=== PATIENT | female | born 1960 | race Caucasian/White ===

== ENCOUNTER 2016-12-18 12:45 | Outpatient (CLI) | payer OTHER ==
--- NOTE | 2016-12-18 18:52 | Mammography Report ---
DIGITAL DIAGNOSTIC BILATERAL MAMMOGRAM: 12/18/2016 CLINICAL INDICATION: Followup benign biopsy. TECHNIQUE: Bilateral CC and MLO views, right true lateral view. COMPARISON: 12/15/2015, 12/05/2015, 10/31/2015, 06/13/2010. The breasts again demonstrate heterogeneously dense fibroglandular parenchyma bilaterally. Postopera tive and post-treatment changes in the right breast are stable. Biopsy marker is stable. Coarse and punctate, typically benign calcifications are present. IMPRESSION: BENIGN FINDINGS. RECOMMENDATION: ROUTINE ANNUAL SCREENING UNLESS OTHERWISE CLINICALLY INDICATED. BIRADS CATEGORY: 2, BENIGN FINDINGS. STANDARD QUALIFYING STATEMENTS 1. This examination was reviewed with the aid of Computed-Aided Detection (CAD). 2. A negative or benign imaging report should not delay biopsy if clinically suspicious findings are present. Consider surgical consultation if warranted. More than 5% of cancers are not identified b y imaging. 3. Dense breasts may obscure an underlying neoplasm. JOB #: [id number] EXT JOB #:[id number]
== END 2016-12-18 12:46 | disposition home or self-care (01) ==
LOC: DI 12:45
PROVIDERS: ATTEND Family Medicine
DX: Z12.31 Encounter for screening mammogram for malignant neoplasm of breast (principal)
CPT/HCPCS: 77066

== ENCOUNTER 2017-01-22 09:43 | Day surgery (SDC) | payer OTHER ==
[2017-01-22] MEDS ORDERED: LACTATED RINGERS 1,000 ML IV ONE (09:50)
[2017-01-22] MEDS ORDERED: fentaNYL 100 MCG/2 ML VIAL IVP ONE (10:40)
[2017-01-22] MEDS ORDERED: MIDAZOLAM 2 MG/2 ML VIAL IVP ONE (10:40)
[2017-01-22 11:56] VITALS: BP 98/70
== END 2017-01-22 09:44 | disposition home or self-care (01) ==
LOC: SDS 09:43
PROVIDERS: ATTEND Surgery
PROC: 0DJD8ZZ Inspection of Lower Intestinal Tract, Via Natural or Artificial Opening Endoscopic (ICD-10-PCS; principal; 2017-01-22 10:45)
DX: Z12.11 Encounter for screening for malignant neoplasm of colon (principal); Z98.0 Intestinal bypass and anastomosis status; J45.909 Unspecified asthma, uncomplicated; K21.9 Gastro-esophageal reflux disease without esophagitis; E03.9 Hypothyroidism, unspecified
CPT/HCPCS: 45378; J7120

== ENCOUNTER 2017-04-08 08:21 | Outpatient (CLI) | payer OTHER ==
--- NOTE | 2017-04-08 15:26 | Ultrasound Report ---
EXAM: AORTA SCREENIN04/08/2017 CLINICAL INDICATION: Family history of aneurysm, personal history of mitral valve prolapse with aortic insufficiency. TECHNIQUE: Real-time sonographic imaging was performed by the java [email or web address] application developer through the aorta. Multiple equal opportunity representative static images were saved for review. FINDINGS: Abdominal aorta is normal in caliber, measuring 2.0 cm proximally, 2.1 cm in the mid portion, and 1.3 cm distally. The iliacs are normal in caliber. No free fluid is present. IMPRESSION: NO EVIDENCE OF ABDOMINAL AORTIC ANEURYSM. TD: 04/08/2017 15:25 MTDD
== END 2017-04-08 08:22 | disposition home or self-care (01) ==
LOC: DI 08:21
PROVIDERS: ATTEND Family Medicine
DX: I34.1 Nonrheumatic mitral (valve) prolapse (principal); I08.0 Rheumatic disorders of both mitral and aortic valves; I71.4 Abdominal aortic aneurysm, without rupture; I35.1 Nonrheumatic aortic (valve) insufficiency
CPT/HCPCS: 76706; 93306

== ENCOUNTER 2017-07-02 00:38 | Emergency (ER) | payer OTHER ==
[2017-07-02] MEDS ORDERED: SODIUM CHLORIDE 0.9% 1,000 ML IV ONE (01:06)
[2017-07-02 01:14] LABS: BASOPHILS % (AUTO) 0.3 %; EOSINOPHILS # (AUTO) 0.1 10^3/uL (0.0-0.7); EOSINOPHILS % (AUTO) 0.6 %; HGB - HEMOGLOBIN 12.7 g/dL (12.0-16.0); LYMPHOCYTES # (AUTO) 1.9 10^3/uL (1.5-3.5); LYMPHOCYTES % (AUTO) 14.6 %; MEAN CORPUSCULAR HEMOGLOBIN 27.4 pg (27.0-31.0); MEAN CORPUSCULAR HGB CONC 32.7 g/dL (32.0-36.0); MEAN CORPUSCULAR VOLUME 83.8 fL (81.0-99.0); MEAN PLATELET VOLUME 8.1 fL (7.9-10.8); MONOCYTES # (AUTO) 0.5 10^3/uL (0.0-1.0); MONOCYTES % (AUTO) 3.5 %; NEUTROPHILS # (AUTO) 10.7 10^3/uL (1.5-6.6); PLT - PLATELET COUNT 356 10^3/uL (130-450); RED BLOOD COUNT 4.62 10^6/uL (4.20-5.40); WHITE BLOOD COUNT 13.3 x10^3/uL (4.8-10.8)
[2017-07-02 01:23] LABS: ALBUMIN/GLOBULIN RATIO 1.1 (1.0-2.2); BILIRUBIN,TOTAL 0.3 mg/dL (0.2-1.0); CALCIUM 9.7 mg/dL (8.5-10.3); CREATININE 0.5 mg/dL (0.4-1.0); TOTAL PROTEIN 7.6 g/dL (6.7-8.2)
[2017-07-02 01:46] LABS: BILIRUBIN,URINE NEGATIVE (NEGATIVE); GLUCOSE, URINE (UA) NEGATIVE (NEGATIVE); KETONES,URINE (UA) NEGATIVE (NEGATIVE); LEUKOCYTE ESTERASE, URINE NEGATIVE (NEGATIVE); NITRITE,URINE NEGATIVE (NEGATIVE); OCCULT BLOOD,URINE MODERATE (NEGATIVE); PROTEIN,URINE NEGATIVE (NEGATIVE); UROBILINOGEN,URINE 0.2 (NORMAL) E.U./dL (NORMAL)
[2017-07-02 01:47] LABS: CLARITY,URINE CLEAR (CLEAR)
[2017-07-02 01:55] LABS: BACTERIA,URINE Rare /HPF (None Seen); SQUAMOUS EPITHELIAL CELL,UR MANY Squamous (<= Few)
--- NOTE | 2017-07-02 02:49 | ED Physician Documentation ---
PD HPI GI BLEED - Stated complaint Stated Complaint: BLOODY DIARRHEA - Chief complaint Chief Complaint: Abd Pain - History obtained from History obtained from: Patient - History of Present Illness Timing - onset: Enter time (16:00) Timing - duration: Hours Timing - details: Abrupt onset Pain level now: 4 Associated symptoms: BRBPR Contributing factors: No: Sick contact, Travel, Recent antibiotics, Anticoagulated Improved by: No: Eating, Laying still, Vomiting, BM, Position, Meds Worsened by: No: Eating, Moving, Breathing, Position, Palpation Recently seen: Not recently seen - Additional information Additional information: c/o diarrhea since 4 PM with blood tinge, with frequent subsequent loose stools and increasing amounts of blood, and 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, Oophrectomy - Present Medications Home Medications: Ambulatory Orders Medication Instructions Recorded Confirmed Estradiol 2 mg PO DAILY 10/24/13 07/02/17 FLUoxetine [PROzac] 60 mg PO DAILY 10/24/13 07/02/17 Levothyroxine [Synthroid] 175 mcg PO QDAC 10/24/13 07/02/17 Ciprofloxacin HCl [Cipro] 500 mg PO BID #14 tablet 07/02/17 Metronidazole [Flagyl] 500 mg PO TID #21 tablet 07/02/17 Ondansetron Odt [Zofran] 4 mg TL Q6H PRN #10 tablet 07/02/17 oxyCODONE [Roxicodone] 5 mg PO Q6H PRN #20 tablet 07/02/17 - Allergies Allergies/Adverse Reactions: Allergies Allergy/AdvReac Type Severity Reaction Status Date / Time morphine Allergy MAKES PT Verified 07/02/17 00:48 FEEL DISORIENTED - Social History Does the pt smoke?: No Smoking Status: Never smoker Does the pt drink ETOH?: No Does the pt have substance abuse?: No - Immunizations Immunizations are current?: Yes - POLST Patient has POLST: No PD ED PE NORMAL - Vitals Vital signs reviewed: Yes - General General: Alert and oriented X 3, No acute distress, Well developed/nourished - HEENT HEENT: Moist mucous membranes - Cardiac Cardiac: RRR, No murmur - Respiratory Respiratory: No respiratory distress, Clear bilaterally - Abdomen Abdomen: Soft, Non distended - Derm Derm: Normal color, Warm and dry PD ED PE EXPANDED - Abdomen Abdomen: Tender to palpation, LUQ Results - Vitals Vitals: Oxygen O2 Source Room air - Labs Labs: Laboratory Tests 07/02/17 07/02/17 07/02/17 01:04 01:04 01:40 WBC 13.3 H RBC 4.62 Hgb 12.7 Hct 38.7 MCV 83.8 MCH 27.4 MCHC 32.7 RDW 15.0 Plt Count 356 MPV 8.1 Neut # 10.7 H Lymph # 1.9 [place] # 0.5 Eos # 0.1 Baso # 0.0 Absolute Nucleated RBC 0.00 Nucleated RBC % 0.0 Sodium 136 Potassium 4.2 Chloride 104 Carbon Dioxide 22 Anion Gap 10.0 BUN 14 Creatinine 0.5 Estimated GFR (MDRD) 127 Glucose 106 H Calcium 9.7 Total Bilirubin 0.3 AST 17 ALT 12 Alkaline Phosphatase 50 Total Protein 7.6 Albumin 4.0 Globulin 3.6 Albumin/Globulin Ratio 1.1 Lipase 19 L Urine Color YELLOW Urine Clarity CLEAR Urine pH 5.0 Ur Specific [place] >=1.030 H Urine Protein NEGATIVE Urine Glucose (UA) NEGATIVE Urine Ketones NEGATIVE Urine Occult Blood MODERATE H Urine Nitrite NEGATIVE Urine Bilirubin NEGATIVE Urine Urobilinogen 0.2 (NORMAL) Ur Leukocyte Esterase NEGATIVE Urine RBC 6-10 H Urine WBC 0-3 Ur Squamous Epith Cells MANY Squamous H Urine Bacteria Rare Ur Microscopic Review INDICATED Urine Culture Comments NOT INDICATED - Rads (name of study) CT A/P Radiology: Prelim report reviewed, See rad report PD MEDICAL DECISION MAKING - ED course Complexity details: reviewed results, re-evaluated patient, considered differential, d/w patient Departure - Departure Disposition: 01 Home, Self Care Clinical Impression: Infectious colitis Condition: Good Instructions: ED Hematochezia Stable Follow-Up: Brigido Marroquin DO [Primary Care Provider] - (3-5 days) Prescriptions: Ciprofloxacin HCl [Cipro] 500 mg PO BID #14 tablet Metronidazole [Flagyl] 500 mg PO TID #21 tablet Ondansetron Odt [Zofran] 4 mg TL Q6H PRN #10 tablet PRN Reason: Nausea / Vomiting oxyCODONE [Roxicodone] 5 mg PO Q6H PRN #20 tablet PRN Reason: Pain Forms: Activity restrictions Discharge Date/Time: 07/02/17 06:23
[2017-07-02] MEDS ORDERED: IOPAMIDOL-300 100 ML VIAL ONE (03:56)
[2017-07-02] MEDS ORDERED: IOPAMIDOL-300 100 ML VIAL IVP ONE (04:10)
[2017-07-02] MEDS ORDERED: ONDANSETRON 4 MG/2 ML VIAL IVP STA ×2 (04:29→06:10)
[2017-07-02] MEDS ORDERED: HYDROmorphone 1 MG/ML SYRINGE IVP STA (04:29)
--- NOTE | 2017-07-02 04:52 | CT Report ---
EXAM: CT ABDOMEN AND PELVIS EXAM DATE: 07/02/2017 04:13 AM. CLINICAL HISTORY: Abdominal pain, blood in stool COMPARISONS: 05/10/2014 TECHNIQUE: Routine helical CT imaging was performed through the abdomen and pelvis. IV contrast: 100M L ISOVUE 300. Enteric contrast: No. Reconstructions: Coronal and sagittal. In accordance with CT protocol optimization, one or more of the following dose reduction techniques w ere utilized for this exam: automated exposure control, adjustment of mA and/or KV based on patient s ize, or use of iterative reconstructive technique. FINDINGS: ABDOMEN: Liver: No significant abnormality. Stomach/Distal Esophagus: No significant abnormality. Gallbladder: Surgically absent. Bile Ducts: No significant abnormality. Pancreas: No significant abnormality. Spleen: No significant abnormality. Kidneys: No suspicious solid appearing lesion. No hydronephrosis. Low-density foci within the lower p ole of the kidneys bilaterally, probably cysts. These are difficult to characterize. A few left-sided peripelvic cysts. Adrenals: No significant abnormality. Bowel: There is wall thickening of the distal descending colon and sigmoid colon is noted. Sigmoid co rubina luminal narrowing. There is a right lower quadrant small bowel colonic anastomosis and partial re section of bowel. Average amount of retained fecal material. Appendix: Surgically absent. Lymph Nodes: No pathologically enlarged nodes. Vasculature: Normal caliber aorta. Fluid: No significant free fluid. Abdominal Wall: No significant abnormality. Other: No significant abnormality. PELVIS: Uterus and Ovaries: Surgically absent uterus. Ovaries are not visualized, possibly surgically absent as well. Bladder: No significant abnormality. Lymph Nodes: No pathologically enlarged nodes. Fluid: No significant free fluid. Other: None. BONES: No suspicious bony lesions. LOWER CHEST: No significant consolidation or effusion. IMPRESSION: 1. Wall thickening of the distal descending colon and sigmoid colon, coupled with sigmoid colon lumin al narrowing. This may be infectious colitis. Inflammatory bowel disease difficult to exclude with ce rtainty. 2. Status post cholecystectomy without pathologic biliary ductal dilation. [facility] Referring Provider Line: [phone] SITE ID: [id number]
--- NOTE | 2017-07-02 04:52 | CT Preliminary Report ---
Exam: CT ABDOMEN/PELVIS W/ IMPRESSION: 1. Wall thickening of the distal descending colon and sigmoid colon, coupled with sigmoid colon lumin al narrowing. This may be infectious colitis. Inflammatory bowel disease difficult to exclude with ce rtainty. 2. Status post cholecystectomy without pathologic biliary ductal dilation. [facility] SITE ID: [id number]
[2017-07-02] MEDS ORDERED: CIPROFLOXACIN 250 MG TABLET PO STA (06:10)
[2017-07-02] MEDS ORDERED: metroNIDAZOLE 250 MG TABLET PO STA (06:10)
[2017-07-02 06:24] VITALS: BP 109/68
== END 2017-07-02 06:23 | disposition home or self-care (01) ==
LOC: ED 00:38
DX: A09 Infectious gastroenteritis and colitis, unspecified (principal); J45.909 Unspecified asthma, uncomplicated; Z98.84 Bariatric surgery status
CPT/HCPCS: 36415; 74177; 80053; 81001; 83690; 85025; 96361; 96374; 96375; 96376; 99284; A9270; J1170; Q9967; 81003; 87086

== ENCOUNTER 2018-01-17 11:28 | Outpatient (CLI) | payer OTHER | END 2018-01-17 11:29 | disposition critical access hospital (66) | LOC: EMS 11:28 | PROVIDERS: ATTEND Surgery | DX: R10.13 Epigastric pain (principal); R11.2 Nausea with vomiting, unspecified | CPT/HCPCS: A0425; A0427 ==

== ENCOUNTER 2018-01-17 11:47 | Emergency (ER) | payer OTHER ==
--- NOTE | 2018-01-17 12:23 | ED Physician Documentation ---
PD HPI ABD PAIN - Stated complaint Stated Complaint: ABD PX - Chief complaint Chief Complaint: Abd Pain - History obtained from History obtained from: Patient - History of Present Illness Timing - onset: Yesterday Timing - duration: Days (2) Timing - details: Abrupt onset, Still present, Waxing and waning Quality: Aching, Pain. No: Cramping Location: RUQ, Epigastric Review of Systems Constitutional: denies: Fever, Chills, Myalgias Nose: denies: Rhinorrhea / runny nose, Congestion Throat: denies: Sore throat Cardiac: denies: Chest pain / pressure, Palpitations Respiratory: denies: Dyspnea, Cough GI: reports: Abdominal Pain, Nausea. denies: Vomiting, Diarrhea : denies: Dysuria, Frequency Skin: denies: Rash, Lesions Neurologic: reports: Generalized weakness. denies: Focal weakness, Numbness, Near syncope PD PAST MEDICAL HISTORY - Past Medical History Cardiovascular: Valve disorder Respiratory: Asthma Psych: Anxiety - Past Surgical History Past Surgical History: Yes General: Cholecystectomy, Appendectomy, Bowel surgery, Gastric surgery, Colonoscopy /[employer] [place]: Hysterectomy, Oophrectomy - Present Medications Home Medications: Ambulatory Orders Medication Instructions Recorded Confirmed Estradiol 2 mg PO DAILY 10/24/13 07/02/17 FLUoxetine [PROzac] 60 mg PO DAILY 10/24/13 07/02/17 Levothyroxine [Synthroid] 175 mcg PO QDAC 10/24/13 07/02/17 Ciprofloxacin HCl [Cipro] 500 mg PO BID #14 tablet 07/02/17 Metronidazole [Flagyl] 500 mg PO TID #21 tablet 07/02/17 Ondansetron Odt [Zofran] 4 mg TL Q6H PRN #10 tablet 07/02/17 oxyCODONE [Roxicodone] 5 mg PO Q6H PRN #20 tablet 07/02/17 Famotidine [Pepcid] 20 mg PO ONCE #30 tablet 01/17/18 Lidocaine Viscous 2% [Xylocaine 5 ml PO Q4H PRN #1 bottle 01/17/18 Viscous 2%] Ondansetron Odt [Zofran] 4 mg TL Q6H PRN #15 tablet 01/17/18 Tramadol HCl 50 mg PO Q6H PRN #20 tablet 01/17/18 - Allergies Allergies/Adverse Reactions: Allergies Allergy/AdvReac Type Severity Reaction Status Date / Time morphine Allergy MAKES PT Verified 07/02/17 00:48 FEEL DISORIENTED - Social History Does the pt smoke?: No Smoking Status: Never smoker Does the pt drink ETOH?: No Does the pt have substance abuse?: No - Family History Family history: reports: Non contributory - Immunizations Immunizations are current?: Yes - POLST Patient has POLST: No PD ED PE NORMAL - Vitals Vital signs reviewed: Yes - General General: Alert and oriented X 3, Well developed/nourished, Other (appears in pain and uncomfortable due to upper abd pain) - HEENT HEENT: PERRL (nonicteric), Pharynx benign - Neck Neck: Supple, no meningeal sign, No adenopathy - Cardiac Cardiac: RRR, No murmur - Respiratory Respiratory: Clear bilaterally - Abdomen Abdomen: Normal bowel sounds, Soft, Non distended, No organomegaly, Other (tender mid to upper abd with local guarding upper abd. No percussion nor rebound tenderness. ) - Female Female : Deferred - Rectal Rectal: Deferred - Back Back: No CVA TTP - Derm Derm: Normal color, Warm and dry - Extremities Extremities: No tenderness to palpate, Normal ROM s pain, No edema, No calf tenderness / cord - Neuro Neuro: Alert and oriented X 3, No motor deficit, Normal speech Results - Vitals Vitals: Oxygen O2 Source Room air - Labs Labs: Laboratory Tests 01/17/18 01/17/18 01/17/18 12:53 12:53 12:53 WBC 6.9 RBC 4.60 Hgb 13.3 Hct 38.9 MCV 84.6 MCH 28.9 MCHC 34.2 RDW 13.8 Plt Count 297 MPV 8.1 Neut # (Auto) 5.1 Lymph # (Auto) 1.2 L [place] # (Auto) 0.4 Eos # (Auto) 0.2 Baso # (Auto) 0.0 Absolute Nucleated RBC 0.01 Nucleated RBC % 0.1 Sodium 135 Potassium 4.3 Chloride 104 Carbon Dioxide 24 Anion Gap 7.0 BUN 9 Creatinine 0.6 Estimated GFR (MDRD) 103 Glucose 108 H Lactic Acid 2.3 H Calcium 9.0 Total Bilirubin 0.7 AST 29 ALT 22 Alkaline Phosphatase 48 Total Protein 7.1 Albumin 3.8 Globulin 3.3 Albumin/Globulin Ratio 1.2 Lipase 76 H - Rads (name of study) abd CT Radiology: Prelim report reviewed (thickened pylorus. Else negative) PD MEDICAL DECISION MAKING - ED course Complexity details: reviewed results, re-evaluated patient (improved much better with meds), considered differential (gastritis vs ulcer), d/w patient - Sepsis Event Vital Signs: Oxygen O2 Source Room air Departure - Departure Disposition: Home, Self Care Clinical Impression: Upper abdominal pain Gastritis Qualifiers: Gastritis type: other gastritis Chronicity: acute Gastritis bleeding: without bleeding Qualified Code(s): K29.00 - Acute gastritis without bleeding Condition: Stable Record reviewed to determine appropriate education?: Yes Instructions: ED Gastritis Follow-Up: Brigido Marroquin DO [Primary Care Provider] - Prescriptions: Famotidine [Pepcid] 20 mg PO ONCE #30 tablet Lidocaine Viscous 2% [Xylocaine Viscous 2%] 5 ml PO Q4H PRN #1 bottle PRN Reason: Pain Ondansetron Odt [Zofran] 4 mg TL Q6H PRN #15 tablet PRN Reason: Nausea / Vomiting Tramadol HCl 50 mg PO Q6H PRN #20 tablet PRN Reason: Pain Comments: This appears to be an irritation of the stomach called gastritis. It could be a mild ulcer as well. These will be treated similarly with acid reducing medicine. Take famotidine daily for the next month. Use Mylanta or Maalox or similar antacid if needed for discomfort and you can add the lidocaine to that to help with abdominal pain. Avoid any anti-inflammatories as that can further irritate the stomach. Instead use Tylenol or tramadol if needed for pains. Ondansetron if needed for nausea. Follow-up with your primary care next week, call for an appointment. Return sooner if worsening. On blood tests and CT scan there is no signs of pancreatitis, bile duct problem, obstruction, other causes. Discharge Date/Time: 01/17/18 15:50
[2018-01-17] MEDS ORDERED: SODIUM CHLORIDE 0.9% 1,000 ML IV ONE ×2 (12:47→13:35)
[2018-01-17] MEDS ORDERED: ONDANSETRON 4 MG/2 ML VIAL IVP STA (12:47)
[2018-01-17] MEDS ORDERED: FAMOTIDINE 20 MG/50 ML 50 ML IV ONE (12:47)
[2018-01-17] MEDS ORDERED: HYDROmorphone 2 MG/ML VIAL IVP STA (12:47)
[2018-01-17 13:03] LABS: BASOPHILS % (AUTO) 0.4 %; EOSINOPHILS # (AUTO) 0.2 10^3/uL (0.0-0.7); EOSINOPHILS % (AUTO) 2.5 %; HGB - HEMOGLOBIN 13.3 g/dL (12.0-16.0); LYMPHOCYTES # (AUTO) 1.2 10^3/uL (1.5-3.5); LYMPHOCYTES % (AUTO) 16.8 %; MEAN CORPUSCULAR HEMOGLOBIN 28.9 pg (27.0-31.0); MEAN CORPUSCULAR HGB CONC 34.2 g/dL (32.0-36.0); MEAN CORPUSCULAR VOLUME 84.6 fL (81.0-99.0); MEAN PLATELET VOLUME 8.1 fL (7.9-10.8); MONOCYTES # (AUTO) 0.4 10^3/uL (0.0-1.0); MONOCYTES % (AUTO) 5.7 %; NEUTROPHILS # (AUTO) 5.1 10^3/uL (1.5-6.6); NEUTROPHILS % (AUTO) 74.6 %; PLT - PLATELET COUNT 297 10^3/uL (130-450); RED CELL DISTRIBUTION WIDTH 13.8 % (12.0-15.0); WHITE BLOOD COUNT 6.9 x10^3/uL (4.8-10.8)
[2018-01-17] MEDS ORDERED: IOPAMIDOL-300 100 ML VIAL ONE (13:17)
[2018-01-17 13:19] LABS: ALBUMIN 3.8 g/dL (3.2-5.5); ALBUMIN/GLOBULIN RATIO 1.2 (1.0-2.2); BILIRUBIN,TOTAL 0.7 mg/dL (0.2-1.0); CREATININE 0.6 mg/dL (0.4-1.0); TOTAL PROTEIN 7.1 g/dL (6.7-8.2)
[2018-01-17] MEDS ORDERED: PROCHLORPERAZINE 10 MG/2 ML VIAL IVP STA (13:34)
[2018-01-17] MEDS ORDERED: IOPAMIDOL-300 100 ML VIAL IVP ONE (14:23)
[2018-01-17] MEDS ORDERED: MAG HYDROX/AL HYDROX/SIMETH 30 ML UDC PO STA (14:37)
--- NOTE | 2018-01-17 14:54 | CT Report ---
Reason: upper pain and vomiting Procedure Date: 01/17/2018 Accession Number: [id number] / [id number] Procedure: CT - Abdomen/Pelvis W/ CPT Code: FULL RESULT: EXAM: CT ABDOMEN AND PELVIS EXAM DATE: 01/17/2018 02:22 PM. CLINICAL HISTORY: Nausea and vomiting with upper abdominal pain and bloating COMPARISONS: ABDOMEN/PELVIS W/ 07/02/2017 4:00 AM. TECHNIQUE: Routine helical CT imaging was performed through the abdomen and pelvis. IV contrast: 100 cc Isovue 300 IV. Enteric contrast: No. Reconstructions: Coronal and sagittal. In accordance with CT protocol optimization, one or more of the following dose reduction techniques were utilized for this exam: automated exposure control, adjustment of mA and/or KV based on patient size, or use of iterative reconstructive technique. FINDINGS: Lung Bases: Unremarkable. Liver: Normal. No masses. Gallbladder/Bile Ducts: The gallbladder is absent. Spleen: Normal. Pancreas: Normal. Adrenal Glands: Normal. Kidneys: There are small renal cysts. No renal mass or hydronephrosis. Peritoneal Cavity/Bowel: The pylorus stomach wall appears thickened. The proximal stomach wall appears normal in thickness. The stomach is normal in size. The small bowel is normal in caliber. No free fluid or free air. There are findings of previous colon surgery with anastomosis. No abscess. Pelvic Organs: Urinary bladder appears within normal limits. Uterus not visualized. Vasculature: No aneurysms or other significant abnormality. Bones: No significant abnormality. Other: None. IMPRESSION: 1. The pylorus of the stomach appears thickened. Question gastritis versus gastric ulcer disease. 2. No dilated bowel, free fluid, or other localizing acute inflammatory process. [facility]
[2018-01-17 15:34] VITALS: BP 105/57
== END 2018-01-17 15:50 | disposition home or self-care (01) ==
LOC: EDUNIT# → ED 11:47
DX: K29.00 Acute gastritis without bleeding (principal)
CPT/HCPCS: 36415; 74177; 80053; 83605; 83690; 85025; 96365; 96375; 99284; A9270; J1170; Q9967

== ENCOUNTER 2018-09-12 07:55 | Emergency (ER) | payer OTHER, BC ==
[2018-09-12 08:05] VITALS: BP 123/77
[2018-09-12] MEDS ORDERED: PROPARACAINE 0.5% OPHTH DROPS 15 ML LEFTEYE STA (08:09)
--- NOTE | 2018-09-12 09:02 | ED Physician Documentation ---
PD HPI OPHTHO - Stated complaint Stated Complaint: LT EYE CHEMICAL SOLUTION SPLASH - Chief complaint Chief Complaint: Heent - History obtained from History obtained from: Patient - History of Present Illness Timing - onset: Today Timing - duration: Minutes Timing - details: Abrupt onset, Still present Location: Left Quality / character: Burning, Throbbing Associated symptoms: Redness, Tearing, FB sensation. No: Double vision, Decreased vision, Loss of vision Contributing factors: Chemical exposure, base Similar symptoms before: Has not had sx before Recently seen: Not recently seen - Additional information Additional information: Previously well 58-year-old female was at the sleep clinic when she was using a germicidal agent and this got into her eye. She was able to rinse her eye at the center for about 15 minutes and she has some persistence of a burning sensation in the eye. She states that the foreign body sensation she has had seems to be improved her eye feels a little dry right now. Review of Systems Constitutional: denies: Fever Eyes: denies: Decreased vision Ears: denies: Ear pain Nose: denies: Rhinorrhea / runny nose, Congestion Throat: denies: Sore throat Cardiac: denies: Chest pain / pressure, Palpitations Respiratory: denies: Dyspnea, Cough GI: denies: Abdominal Pain, Nausea, Vomiting : denies: Dysuria, Frequency PD PAST MEDICAL HISTORY - Past Medical History Past Medical History: Yes Cardiovascular: Valve disorder Respiratory: Asthma Psych: Anxiety - Past Surgical History Past Surgical History: Yes General: Cholecystectomy, Appendectomy, Bowel surgery, Gastric surgery, 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, 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 - Present Medications Home Medications: Ambulatory Orders Medication Instructions Recorded Confirmed Estradiol 2 mg PO DAILY 10/24/13 09/12/18 FLUoxetine [PROzac] 60 mg PO DAILY 10/24/13 09/12/18 Levothyroxine [Synthroid] 175 mcg PO QDAC 10/24/13 09/12/18 Neomycin/Poly/Dex Ophth Drops 1 drops LEFTEYE QID #1 bottle 09/12/18 [Maxitrol Ophth Drops] - Allergies Allergies/Adverse Reactions: Allergies Allergy/AdvReac Type Severity Reaction Status Date / Time morphine Allergy MAKES PT Verified 07/02/17 00:48 FEEL DISORIENTED - Social History Does the pt smoke?: No Smoking Status: Never smoker Does the pt drink ETOH?: No Does the pt have substance abuse?: No - Immunizations Immunizations are current?: Yes - POLST Patient has POLST: No PD ED PE NORMAL - Vitals Vital signs reviewed: Yes (tachy ) - General General: Alert and oriented X 3, No acute distress, Well developed/nourished - HEENT HEENT: Atraumatic, PERRL, EOMI - Respiratory Respiratory: No respiratory distress - Derm Derm: Normal color, No rash - Extremities Extremities: No deformity, No edema - Neuro Neuro: Alert and oriented X 3, utilization specialist 2-12 intact, No motor deficit, No sensory deficit, Normal speech Eye Opening: Spontaneous Motor: Obeys Commands Verbal: Oriented GCS Score: 15 - Psych Psych: Normal mood, Normal affect Results - Vitals Vitals: Vital Signs - 24 hr 09/12/18 08:03 Temperature 35.9 C L Heart Rate 104 H Respiratory 16 Rate Blood Pressure 123/77 O2 Saturation 97 Oxygen O2 Source Room air PD MEDICAL DECISION MAKING - ED course Complexity details: reviewed results, re-evaluated patient, considered differential, d/w patient ED course: 58-year-old female with chemical exposure to the left eye has irrigated with 500 mL's of normal saline with the addition of Alcaine. Patient tolerates this well. Departure - Departure Disposition: 01 Home, Self Care Clinical Impression: Chemical exposure of eye Condition: Stable Instructions: ED Chemical Conjunctivitis Follow-Up: Brigido Marroquin DO [Primary Care Provider] - Prescriptions: Neomycin/Poly/Dex Ophth Drops [Maxitrol Ophth Drops] 1 drops LEFTEYE QID #1 bottle
== END 2018-09-12 09:22 | disposition home or self-care (01) ==
LOC: ED 07:55
DX: H57.12 Ocular pain, left eye (principal); Z77.098 Contact with and (suspected) exposure to other hazardous, chiefly nonmedicinal, chemicals
CPT/HCPCS: 99283; J3490

== ENCOUNTER 2019-02-09 17:19 | Emergency (ER) | payer BC ==
[2019-02-09] MEDS ORDERED: ONDANSETRON ODT 4 MG TABLET TL STA (19:04)
[2019-02-09] MEDS ORDERED: HYDROmorphone 2 MG TABLET PO STA (19:04)
--- NOTE | 2019-02-09 19:06 | ED Physician Documentation ---
History of Present Illness - Stated complaint Stated Complaint: HEAD PX/FALL DOWN STAIRS - Chief complaint Chief Complaint: General - History obtained from History obtained from: Patient - History of Present Illness Timing: Today (She was carrying her cat down the stairs and tripped and fell forward. She impacted her face on the right against a door jam. She had brief loss of consciousness and now has mostly right-sided facial pain but also anterior chest wall pain, headache, and left knee pain. 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, Oophrectomy - Present Medications Home Medications: Ambulatory Orders Medication Instructions Recorded Confirmed Estradiol 2 mg PO DAILY 10/24/13 09/12/18 FLUoxetine [PROzac] 60 mg PO DAILY 10/24/13 09/12/18 Levothyroxine [Synthroid] 175 mcg PO QDAC 10/24/13 09/12/18 Neomycin/Poly/Dex Ophth Drops 1 drops LEFTEYE QID #1 bottle 09/12/18 [Maxitrol Ophth Drops] Hydrocodone/Acetaminophen 1 - 2 each PO Q6H PRN #14 tablet 02/09/19 [Hydrocodon-Acetaminophen 5-325] - Allergies Allergies/Adverse Reactions: Allergies Allergy/AdvReac Type Severity Reaction Status Date / Time morphine Allergy MAKES PT Verified 07/02/17 00:48 FEEL DISORIENTED - Social History Does the pt smoke?: No Smoking Status: Never smoker Does the pt drink ETOH?: No Does the pt have substance abuse?: No - Immunizations Immunizations are current?: Yes - POLST Patient has POLST: No PD ED PE NORMAL - Vitals Vital signs reviewed: Yes - General General: Alert and oriented X 3, No acute distress - HEENT HEENT: Other (The nasal bridge is tender and slightly deviated to the right. She is tender over the infraorbital area on the right without deformity or evidence of entrapment. The jaw clicks but she says that is chronic.) - Neck Neck: Supple, no meningeal sign, No bony TTP - Cardiac Cardiac: RRR, No murmur, Other (Quite tender over the anterior mid sternum) - Respiratory Respiratory: No respiratory distress, Clear bilaterally - Abdomen Abdomen: Non tender - Extremities Extremities: Other (Mild tenderness over the lateral and anterior part of the left knee without effusion or deformity. Full range of motion.) - Neuro Neuro: Alert and oriented X 3, Normal speech Results - Vitals Vitals: Vital Signs - 24 hr 02/09/19 17:34 Temperature 36.7 C Heart Rate 97 Respiratory 18 Rate Blood Pressure 128/76 O2 Saturation 100 Oxygen O2 Source Room air - Rads (name of study) CT Head, face, cspine, chest and L knee XR Radiology: EMP read contemporaneously (neg except DJD) Departure - Departure Disposition: 01 Home, Self Care Clinical Impression: Concussion Qualifiers: Encounter type: initial encounter Loss of consciousness presence/duration: with LOC of 30 min or less Qualified Code(s): S06.0X1A - Concussion with loss of consciousness of 30 minutes or less, initial encounter Chest wall contusion Qualifiers: Encounter type: initial encounter Laterality: unspecified laterality Qualified Code(s): S20.219A - Contusion of unspecified front wall of thorax, initial encounter Contusion of left knee Qualifiers: Encounter type: initial encounter Qualified Code(s): S80.02XA - Contusion of left knee, initial encounter Facial contusion Qualifiers: Encounter type: initial encounter Qualified Code(s): S00.83XA - Contusion of other part of head, initial encounter Condition: Good Record reviewed to determine appropriate education?: Yes Instructions: ED Contusion Chest Wall, ED Head Injury Closed Prescriptions: Hydrocodone/Acetaminophen [Hydrocodon-Acetaminophen 5-325] 1 - 2 each PO Q6H PRN #14 tablet PRN Reason: pain Comments: Recheck with your MD next week if not better Forms: Activity restrictions
[2019-02-09] MEDS ORDERED: HYDROmorphone 1 MG/ML CARPUJECT IVP STA (20:35)
[2019-02-09] MEDS ORDERED: PROMETHAZINE 25 MG/1 ML VIAL IM STA (20:35)
[2019-02-09] MEDS ORDERED: HYDROmorphone 1 MG/ML CARPUJECT IM STA (20:38)
--- NOTE | 2019-02-09 20:42 | CT Report ---
Reason: fall down stairs, head inj, nasal, R zygoma, chest Procedure Date: 02/09/2019 Accession Number: [id number] / [id number] Procedure: CT - CERVICAL SPINE WO CPT Code: FULL RESULT: EXAM: CT CERVICAL SPINE WITHOUT CONTRAST DATE: 02/09/2019 08:06 PM. HISTORY: Fall. Neck pain. COMPARISONS: HEAD W/O 07/07/2015 1:54 PM. TECHNIQUE: Thin-section axial images were acquired of the cervical spine without contrast. Post-processing: Coronal and sagittal reformats. Other: None. In accordance with CT protocol optimization, one or more of the following dose reduction techniques were utilized for this exam: automated exposure control, adjustment of mA and/or KV based on patient size, or use of iterative reconstructive technique. FINDINGS: Alignment: No scoliosis or spondylolisthesis. Bones: No fracture or bone lesion. Interspace Levels/Facets: There is moderate disk height loss at C4-C5 and C5-C6. There is disk osteophyte spurring. There is mild disk height loss at C3-C4. Facet joints appear normal in alignment. No critical central spinal canal stenosis. Musculature: Normal. No fatty atrophy. Other: The paravertebral and prevertebral soft tissues are unremarkable. Trachea is midline. IMPRESSION: 1. Negative for acute fracture and subluxation of the cervical spine. 2. Moderate chronic degenerative disk disease at C4-C5 and C5-C6. RADIA
--- NOTE | 2019-02-09 20:44 | CT Report ---
Reason: fall down stairs, head inj, nasal, R zygoma, chest Procedure Date: 02/09/2019 Accession Number: [id number] / [id number] Procedure: CT - HEAD WO CPT Code: FULL RESULT: EXAM: CT HEAD EXAM DATE: 02/09/2019 08:06 PM. CLINICAL HISTORY: Trauma. COMPARISON: HEAD W/O 07/07/2015 1:54 PM. TECHNIQUE: Multiaxial CT images were obtained from the foramen magnum to the vertex. Reformats: Sagittal and coronal. IV contrast: None. In accordance with CT protocol optimization, one or more of the following dose reduction techniques were utilized for this exam: automated exposure control, adjustment of mA and/or KV based on patient size, or use of iterative reconstructive technique. FINDINGS: PARENCHYMA: No acute hemorrhage, transcortical infarction or mass. Normal banks-white differentiation. EXTRA-AXIAL SPACES: No extra-axial fluid collections. No midline shift. VENTRICLES/SULCI: Normal for patient age. VASCULAR STRUCTURES: The visible vascular structures are unremarkable. SINUSES: Air fluid level in the sphenoid sinus. The visible paranasal sinuses and mastoid air cells are otherwise unremarkable. ORBITS: Unremarkable. BONES: No displaced acute calvarial fracture. OTHER: None. IMPRESSION: 1. No acute intracranial findings. 2. Air-fluid level in the sphenoid sinus, correlate clinically for acute sinusitis. RADIA
--- NOTE | 2019-02-09 20:46 | CT Report ---
Reason: fall down stairs, head inj, nasal, R zygoma, chest Procedure Date: 02/09/2019 Accession Number: [id number] / [id number] Procedure: CT - MAXILLOFACIAL WO CPT Code: FULL RESULT: EXAM: CT MAXILLOFACIAL WITHOUT CONTRAST EXAM DATE: 02/09/2019 08:06 PM. CLINICAL HISTORY: Fall with right-sided face pain. COMPARISONS: HEAD W/O 07/07/2015 1:54 PM. TECHNIQUE: Thin-section axial images were acquired of the face without contrast. Post-processing: Coronal and sagittal reformats. Other: None. In accordance with CT protocol optimization, one or more of the following dose reduction techniques were utilized for this exam: automated exposure control, adjustment of mA and/or KV based on patient size, or use of iterative reconstructive technique. FINDINGS: Soft Tissue: There is soft tissue swelling and increased density of the subcutaneous tissue of the right face consistent with contusion and subcutaneous hematoma. No radiopaque foreign body. Orbits: Symmetric and unremarkable. Bones: No fracture or bone lesion. Temporomandibular Joints: The temporomandibular joints are symmetric and normally located. Sinuses: There is mucosal thickening in the bilateral ethmoid, frontal, sphenoid and maxillary sinuses. The mastoid sinuses are clear. No air-fluid level. Other: None. IMPRESSION: 1. Right facial soft tissue contusion and subcutaneous hematoma. 2. No acute facial fracture. RADIA
--- NOTE | 2019-02-09 20:50 | XRAY Report ---
Reason: knee inj Procedure Date: 02/09/2019 Accession Number: [id number] / [id number] Procedure: XR - Knee 4 View LT CPT Code: FULL RESULT: EXAM: LEFT KNEE RADIOGRAPHY EXAM DATE: 02/09/2019 08:13 PM. CLINICAL HISTORY: Trauma COMPARISON: None. TECHNIQUE: 4 views. FINDINGS: Bones: No acute fracture. No suspicious osseous lesion. Joints: No significant joint space narrowing. No dislocation. Other: None. IMPRESSION: No acute osseous abnormality. RADIA
--- NOTE | 2019-02-09 20:52 | CT Report ---
Reason: fall down stairs, head inj, nasal, R zygoma, chest Procedure Date: 02/09/2019 Accession Number: [id number] / [id number] Procedure: CT - CHEST WO CPT Code: FULL RESULT: EXAM: CT CHEST EXAM DATE: 02/09/2019 08:06 PM. CLINICAL HISTORY: Trauma with sternum pain COMPARISONS: None. TECHNIQUE: Routine helical CT imaging was performed through the chest. IV contrast: None. Reconstructions: Coronal and sagittal. In accordance with CT protocol optimization, one or more of the following dose reduction techniques were utilized for this exam: automated exposure control, adjustment of mA and/or KV based on patient size, or use of iterative reconstructive technique. FINDINGS: Lungs/Pleura: No nodules, bronchial thickening, consolidation, or edema. Pulmonary vasculature is normal. No pericardial or pleural effusion. No pneumothorax. Mediastinum: Normal. No adenopathy or masses. The heart and great vessels are normal. Bones: No fracture Visualized Abdomen: Gallbladder surgically absent. No upper abdominal free fluid. Other: None. IMPRESSION: Negative chest CT. RADIA
[2019-02-09] MEDS ORDERED: HYDROcod/ACET 5/325 Prepack 4 PO STA (20:59)
[2019-02-09 21:07] VITALS: BP 109/68
== END 2019-02-09 21:17 | disposition home or self-care (01) ==
LOC: ED 17:19
DX: S06.0X1A Concussion with loss of consciousness of 30 minutes or less, initial encounter (principal); S00.83XA Contusion of other part of head, initial encounter; S20.219A Contusion of unspecified front wall of thorax, initial encounter; S80.02XA Contusion of left knee, initial encounter; W10.8XXA Fall (on) (from) other stairs and steps, initial encounter; W22.09XA Striking against other stationary object, initial encounter; Y93.01 Activity, walking, marching and hiking; Y92.009 Unspecified place in unspecified non-institutional (private) residence as the place of occurrence of the external cause; M47.812 Spondylosis without myelopathy or radiculopathy, cervical region
CPT/HCPCS: 70450; 70486; 71250; 72125; 73564; 96372; 99284; J1170; Q0162

== ENCOUNTER 2020-05-10 13:22 | Outpatient (CLI) | payer SELFPAY | END 2020-05-10 13:23 | disposition home or self-care (01) | LOC: COV 13:22 | PROVIDERS: ATTEND Family Medicine | DX: R05 Cough (principal); R06.02 Shortness of breath; R19.7 Diarrhea, unspecified; Z20.822 Contact with and (suspected) exposure to COVID-19 ==

== ENCOUNTER 2021-04-22 11:23 | Emergency (ER) | payer BC, OTHER ==
[2021-04-22] MEDS ORDERED: HYDROcod/ACETAM 5/325 MG TABLET PO STA (12:33)
--- NOTE | 2021-04-22 12:34 | ED Physician Documentation ---
PD HPI HEENT - Stated complaint Stated Complaint: FEVER, SORE THROAT - Chief complaint Chief Complaint: Resp - History obtained from History obtained from: Patient - Additional information Additional information: 61-year-old woman with history of hypothyroidism asthma presents with 4 days of illness marked by initially sore throat, body aches, low-grade fevers and a cough. Last night she felt like her chest was rattling. No sick contacts or recent travel. She is vaccinated and boosted with Pfizer against Covid. Review of Systems Ten Systems: 10 systems reviewed and negative Constitutional: reports: Fever, Chills Nose: reports: Rhinorrhea / runny nose Throat: reports: Sore throat Respiratory: reports: Cough. 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, Oophrectomy - Present Medications Home Medications: Ambulatory Orders Medication Instructions Recorded Confirmed FLUoxetine [PROzac] 60 mg PO DAILY 10/24/13 09/12/18 Levothyroxine [Synthroid] 175 mcg PO QDAC 10/24/13 09/12/18 estradioL [Estradiol] 2 mg PO DAILY 10/24/13 09/12/18 Neomycin/Poly/Dex Ophth Drops 1 drops LEFTEYE QID #1 bottle 09/12/18 [Maxitrol Ophth Drops] Hydrocodone/Acetaminophen 1 - 2 each PO Q6H PRN #14 tablet 02/09/19 [Hydrocodon-Acetaminophen 5-325] Benzonatate [Tessalon] 200 mg PO QID PRN #20 cap 04/22/21 HYDROcod/ACETAM 5/325 [[place] 5/325] 1 - 2 tab PO Q6H PRN #15 tablet 04/22/21 - Allergies Allergies/Adverse Reactions: Allergies Allergy/AdvReac Type Severity Reaction Status Date / Time morphine Allergy MAKES PT Verified 04/22/21 11:31 FEEL DISORIENTED - Social History Does the pt smoke?: No Smoking Status: Never smoker Does the pt drink ETOH?: No Does the pt have substance abuse?: No - Immunizations Immunizations are current?: Yes - POLST Patient has POLST: No PD ED PE NORMAL - Vitals Vital signs reviewed: Yes - General General: Alert and oriented X 3 (Frequent coughing, nontoxic) - HEENT HEENT: Other (Mildly red oropharynx without exudates or swelling.) - Neck Neck: Supple, no meningeal sign, No bony TTP - Cardiac Cardiac: RRR, No murmur - Respiratory Respiratory: No respiratory distress, Clear bilaterally - Abdomen Abdomen: Non tender - Derm Derm: No rash - Neuro Neuro: Alert and oriented X 3, Normal speech Results - Vitals Vitals: Vital Signs - 24 hr 04/22/21 04/22/21 11:27 12:41 Temperature 37.2 C Heart Rate 126 H 100 Respiratory 18 16 Rate Blood Pressure 141/90 H 117/76 O2 Saturation 95 94 Oxygen O2 Source Room air - Labs Labs: Laboratory Tests 04/22/21 04/22/21 12:33 12:47 WBC 8.5 RBC 4.62 Hgb 13.1 Hct 40.6 MCV 87.9 MCH 28.4 MCHC 32.3 RDW 14.0 Plt Count 247 MPV 10.1 Neut # (Auto) 6.2 Lymph # (Auto) 1.3 L Charles # (Auto) 0.7 Eos # (Auto) 0.2 Baso # (Auto) 0.0 Absolute Nucleated RBC 0.00 Nucleated RBC % 0.0 Sodium 138 Potassium 4.0 Chloride 102 Carbon Dioxide 26 Anion Gap 10.0 BUN 8 Creatinine 0.5 Estimated GFR (MDRD) 125 Glucose 116 H Calcium 9.1 PD MEDICAL DECISION MAKING - ED course ED course: 61-year-old woman who is triple vaccinated against Covid presents with a viral URI with laryngitis and cough. Chest x-ray consistent with a viral pneumonia blood work unremarkable. Departure - Departure Disposition: Home, Self Care Clinical Impression: Viral syndrome Condition: Good Record reviewed to determine appropriate education?: Yes Instructions: ED Viral Syndrome Prescriptions: HYDROcod/ACETAM 5/325 [[place] 5/325] 1 - 2 tab PO Q6H PRN #15 tablet PRN Reason: Pain Benzonatate [Tessalon] 200 mg PO QID PRN #20 cap PRN Reason: Cough Comments: Prescriptions were sent electronically to [facility] in [place]. You have a Covid test pending. You need to self quarantine until the result is done and negative. Do not leave your house. Do not get near anybody. The results should be done in 48 to 72 hours. We will call with a positive result, the fastest way to get a negative result for confirmation though is to go to the hospital website at [email or web address], click on the my [facility] tab and sign up for the patient portal. If any friends or family get sick and would like to have a Covid test done, but do not have signs or symptoms that would necessitate being hospitalized, there are multiple local options for Covid testing. [facility] keeps an updated list of testing and vaccination options at: [email or web address]. I am prescribing a short course of narcotic pain medication for you. These are potentially dangerous and addictive medications that should be used carefully. These medications may constipate you. Take an dgln-ukj-ijhhnnm stool softener (docusate) twice daily with plenty of water while taking these medications. If you go 24 hours without a bowel movement, take uase-rio-yrtxrzs miralax, per package instructions. Do not drink or drive while taking these medications. If you received narcotic or sedating medications while in the emergency department, do not drive for 24 hours. Store this medication in a safe, secure place and out of reach of children. It is a violation of federal law to give or sell this medication to another [facility] or to use in a manner other than prescribed. The ED will not refill narcotic prescriptions, including prescriptions lost or stolen. To dispose of unwanted medications: 1. [facility] at [address] in [place] has a medication drop box. They accept prescription medications (in pill form) Saturday through Saturday 9:00 a.m. to 5:00 p.m. 2. [facility] [employer] accepts prescription medications (in pill form only) for disposal year round. Call for more information. 3. Contact the [facility] for the next [facility] sponsored prescription drug collection event. , [phone], or [phone]; Note that many narcotic pain relievers also contain Tylenol/acetaminophen. Please ensure that your total dose of acetaminophen from all sources does not exceed 3 g (3000 mg) per day. Forms: Activity restrictions
[2021-04-22 12:54] LABS: BASOPHILS % (AUTO) 0.5 %; EOSINOPHILS # (AUTO) 0.2 10^3/uL (0.0-0.7); EOSINOPHILS % (AUTO) 2.7 %; HCT - HEMATOCRIT 40.6 % (37.0-47.0); HGB - HEMOGLOBIN 13.1 g/dL (12.0-16.0); LYMPHOCYTES # (AUTO) 1.3 10^3/uL (1.5-3.5); LYMPHOCYTES % (AUTO) 15.2 %; MEAN CORPUSCULAR HEMOGLOBIN 28.4 pg (27.0-31.0); MEAN CORPUSCULAR HGB CONC 32.3 g/dL (32.0-36.0); MEAN CORPUSCULAR VOLUME 87.9 fL (81.0-99.0); MEAN PLATELET VOLUME 10.1 fL (7.9-10.8); MONOCYTES # (AUTO) 0.7 10^3/uL (0.0-1.0); MONOCYTES % (AUTO) 8.4 %; NEUTROPHILS # (AUTO) 6.2 10^3/uL (1.5-6.6); NEUTROPHILS % (AUTO) 72.8 %; PLT - PLATELET COUNT 247 10^3/uL (130-450); RED BLOOD COUNT 4.62 10^6/uL (4.20-5.40); WHITE BLOOD COUNT 8.5 x10^3/uL (4.8-10.8)
[2021-04-22 13:05] LABS: CALCIUM 9.1 mg/dL (8.5-10.3); CREATININE 0.5 mg/dL (0.4-1.0)
--- NOTE | 2021-04-22 13:29 | XRAY Report ---
PROCEDURE: Chest 1 View X-Ray INDICATIONS: chest TECHNIQUE: One view of the chest was acquired. COMPARISON: CT chest 02/10/2020 FINDINGS: Surgical changes and devices: None. Lungs and pleura: Mild appearance of slight increased pulmonary interstitial opacities. Mediastinum: Mediastinal contours appear normal. Heart size is normal. Bones and chest wall: No suspicious bony lesions. Overlying soft tissues appear unremarkable. IMPRESSION: Mild appearance of increased interstitial opacities which could represent edema versus viral airspace disease. Reviewed by: Zahira Melendez MD on 04/22/2021 1:28 PM PST Approved by: Zahira Melendez MD on 04/22/2021 1:28 PM PST Station ID: [id number]
[2021-04-22 13:50] VITALS: BP 118/72
== END 2021-04-22 13:49 | disposition home or self-care (01) ==
LOC: ED 11:23
DX: B34.9 Viral infection, unspecified (principal); Z20.822 Contact with and (suspected) exposure to COVID-19
CPT/HCPCS: 36415; 71045; 80048; 85025; 87635; 99283; 99284; A9270